=== PATIENT | male | born 2000 | race Caucasian/White ===

== ENCOUNTER 2020-10-30 14:26 | Outpatient (REF) | payer OTHER, SELFPAY | END 2020-10-30 14:27 | disposition home or self-care (01) | LOC: HO.HMGCLDS 14:26 | PROVIDERS: PCP Family Medicine; Visit Provider Internal Medicine | DX: Z20.822 Contact with and (suspected) exposure to COVID-19 (principal) | CPT/HCPCS: 36415; C9803; U0003; U0005 ==